=== PATIENT | male | born 1965 | race African-American/Black ===

== ENCOUNTER 2024-09-17 22:29 | Emergency (ER) | payer OTHER ==
[~2024-09-17] VITALS: Ht 182.9 cm; Wt 115.9 kg
[2024-09-18 00:21] LABS: BASOPHILS % (AUTO) 0.6 % (0.0-2.0); EOSINOPHILS % (AUTO) 1.4 % (1.0-6.0); HEMATOCRIT 42.3 % (41-53); HEMOGLOBIN 13.6 g/dL (13.5-17.5); LYMPHOCYTES # (AUTO) 3.1 K/uL (1.0-4.8); LYMPHOCYTES % (AUTO) 34.4 % (22.0-44.0); MEAN CORPUSCULAR HEMOGLOBIN 27.9 pg (26.0-34.0); MEAN CORPUSCULAR HGB CONC 32.3 G/dL (31.0-37.0); MEAN CORPUSCULAR VOLUME 86 fL (80-100); MONOCYTES # (AUTO) 0.9 K/uL (0.1-1.0); MONOCYTES % (AUTO) 10.2 % (2.0-9.0); NEUTROPHILS # (AUTO) 4.7 K/uL (1.8-7.7); NEUTROPHILS % (AUTO) 53.4 % (40.0-70.0); PLATELET COUNT (AUTO) 202 K/uL (150-450); RED BLOOD CELL COUNT(AUTO) 4.89 MIL/uL (4.50-5.90); RED CELL DISTRIBUTION WIDTH 14.7 % (11.5-14.5); WHITE BLOOD COUNT (AUTO) 8.9 K/uL (4.5-11.0)
[2024-09-18 00:24] LABS: ANION GAP 7 mmol/L (8-16); CALCIUM, TOTAL 9.1 mg/dL (8.8-10.5); CARBON DIOXIDE 28 mmol/L (22-29); CHLORIDE 104 mmol/L (98-107); CREATININE 1.32 mg/dL (0.60-1.30); GLOMERULAR FILTR. RATE CALC > 60 mL/min (>60); GLUCOSE,RANDOM 98 mg/dL (70-110); POTASSIUM 3.8 mmol/L (3.5-5.1); SODIUM SERUM 139 mmol/L (136-145); UREA NITROGEN, BLOOD 10 mg/dL (7-18)
[2024-09-18 00:38] VITALS: BP 151/79; PULSE 66; RESP 16; TEMP 98.5; O2SAT 99
== END 2024-09-18 01:04 ==
LOC: EMS 22:29
DX: M79.604 Pain in right leg (principal); Z02.89 Encounter for other administrative examinations
CPT/HCPCS: 80048; 85025; 93971; 99284

== ENCOUNTER 2024-09-30 00:44 | Inpatient (IN) | payer OTHER ==
[~2024-09-30] VITALS: Ht 182.9 cm; Wt 95.5 kg
[2024-09-30 02:36] LABS: BASOPHILS % (AUTO) 0.7 % (0.0-2.0); EOSINOPHILS % (AUTO) 1.5 % (1.0-6.0); HEMATOCRIT 37.4 % (41-53); HEMOGLOBIN 12.3 g/dL (13.5-17.5); LYMPHOCYTES # (AUTO) 2.6 K/uL (1.0-4.8); LYMPHOCYTES % (AUTO) 32.3 % (22.0-44.0); MEAN CORPUSCULAR HEMOGLOBIN 28.4 pg (26.0-34.0); MEAN CORPUSCULAR HGB CONC 32.9 G/dL (31.0-37.0); MEAN CORPUSCULAR VOLUME 86 fL (80-100); MONOCYTES # (AUTO) 0.9 K/uL (0.1-1.0); MONOCYTES % (AUTO) 10.6 % (2.0-9.0); NEUTROPHILS # (AUTO) 4.4 K/uL (1.8-7.7); NEUTROPHILS % (AUTO) 54.9 % (40.0-70.0); PLATELET COUNT (AUTO) 166 K/uL (150-450); RED BLOOD CELL COUNT(AUTO) 4.34 MIL/uL (4.50-5.90); RED CELL DISTRIBUTION WIDTH 14.4 % (11.5-14.5); WHITE BLOOD COUNT (AUTO) 8.1 K/uL (4.5-11.0)
[2024-09-30 02:38] LABS: ANION GAP 8 mmol/L (8-16); CALCIUM, TOTAL 8.7 mg/dL (8.8-10.5); CARBON DIOXIDE 28 mmol/L (22-29); CHLORIDE 104 mmol/L (98-107); CREATININE 1.27 mg/dL (0.60-1.30); GLOMERULAR FILTR. RATE CALC > 60 mL/min (>60); GLUCOSE,RANDOM 83 mg/dL (70-110); POTASSIUM 4.4 mmol/L (3.5-5.1); SODIUM SERUM 140 mmol/L (136-145); UREA NITROGEN, BLOOD 9 mg/dL (7-18)
[2024-09-30 02:47] LABS: TROPONIN I-HIGH SENSITIVITY 7 ng/L (<76)
[2024-09-30 02:51] LABS: B-TYPE NATRIURETIC PEPTIDE 15 pg/mL (0-100)
[2024-09-30] MEDS: SODIUM CHLORIDE 0.9% 1,000 ML IV ONE (03:15)
[2024-09-30] MEDS ORDERED: VANCOMYCIN 1GM/WATER(PEG/NADA) 200 ML IV ONE (03:15)
[2024-09-30] MEDS: VANCOMYCIN HCL 1 GM/D5% WATER 200 ML IV ONE (03:30)
[2024-09-30 04:56] LABS: LACTIC ACID 1.2 mmol/L (0.4-2.0)
[2024-09-30 06:10] VITALS: BP 141/86; PULSE 54; RESP 19; TEMP 97.7; O2SAT 98
[2024-09-30] MEDS ORDERED: INFLUENZA VIRUS VACCINE TVS (6MO+) 2024-25/PF 45 MCG/0.5 ML SYRINGE IM. ONE (06:45)
[2024-09-30 07:30] VITALS: BP 123/75; PULSE 59; RESP 18; TEMP 97.7; O2SAT 100
[2024-09-30] MEDS: FUROSEMIDE 40 MG TABLET PO SCH (16:42)
[2024-09-30 19:46] VITALS: BP 109/66; PULSE 64; RESP 20; TEMP 97.7; O2SAT 98
[2024-10-01 02:22] VITALS: BP 131/82; PULSE 59; RESP 18; TEMP 97.9; O2SAT 98
[2024-10-01 08:44] VITALS: BP 158/86; PULSE 60; RESP 18; TEMP 97.5; O2SAT 99
[2024-10-01] MEDS: LOSARTAN POTASSIUM 50 MG TABLET PO ONE (16:04)
[2024-10-01] MEDS ORDERED: POTA8TAB71 PO (17:51)
[2024-10-01] MEDS ORDERED: FURO20TA5 PO (17:51)
[2024-10-01] MEDS ORDERED: LOSA-381 PO (17:52)
[2024-10-01 19:34] VITALS: BP 124/79; PULSE 76; RESP 18; TEMP 97.7; O2SAT 95
[2024-10-02] MEDS ORDERED: LOSARTAN POTASSIUM 50 MG TABLET PO SCH (09:00)
== END 2024-10-01 21:31 | DRG 603 ==
LOC: EMS 00:50 → EDH 04:13 → 6N 05:49
PROVIDERS: ADMIT Hospitalist; ATTEND Hospitalist
DX: L03.115 Cellulitis of right lower limb (principal); I10 Essential (primary) hypertension; E78.00 Pure hypercholesterolemia, unspecified; Z88.6 Allergy status to analgesic agent
CPT/HCPCS: 71045; 80048; 83605; 83880; 84484; 85025; 87040; 93306; 96365; 99285; J3370; J7030; 36415-L1; 36415-TC